=== PATIENT | male | born 1970 | race Caucasian/White ===

== ENCOUNTER 2018-09-25 08:37 | Outpatient (CLI) | payer BC ==
--- NOTE | 2018-09-25 10:36 | RAD ---
EXAM: PELVIS ONE VIEW: History: Pelvic pain without injury. FINDINGS: Mild degenerative changes of the hip joints. No acute fracture or dislocation. IMPRESSION: Unremarkable AP pelvis. No acute process. POS: [facility]
== END 2018-09-25 08:38 | disposition home or self-care (01) ==
LOC: BICRAD 08:37
PROVIDERS: ATTEND Family Medicine
DX: R10.2 Pelvic and perineal pain (principal)
CPT/HCPCS: 72170

== ENCOUNTER 2018-10-23 12:25 | Outpatient (CLI) | payer BC ==
--- NOTE | 2018-10-23 13:07 | RAD ---
2 views lumbar spine. HISTORY: Onset back pain. AP and lateral views lumbar spine. 5 nonrib-bearing lumbar vertebra seen. No evidence of fractures, subluxations or bony lesions. Small anterior osteophytes seen involving L3- L4 and L5 levels. No evidence of acute fracture seen. IMPRESSION: minimal changes of spondylosis in the lumbar spine.
== END 2018-10-23 12:26 | disposition home or self-care (01) ==
LOC: SCSRAD 12:25
PROVIDERS: ATTEND Family Medicine
DX: M54.9 Dorsalgia, unspecified (principal); M47.816 Spondylosis without myelopathy or radiculopathy, lumbar region
CPT/HCPCS: 72100

== ENCOUNTER 2019-01-17 08:00 | Outpatient (CLI) | payer BC ==
--- NOTE | 2019-01-17 10:09 | CT ---
CT ABDOMEN AND PELVIS WITH AND WITHOUT CONTRAST: INDICATIONS: Pelvic pain. Groin pain. FINDINGS: There is atelectasis at the lung bases. Noncontrast CT imaging reveals no radiopaque urolithiasis or calcified gallstones. Contrast opacified small bowel is normal in caliber. No acute colonic inflam mation. Solid abdominal organs are normal in appearance. No ascites. The urinary bladder is unrema rkable. No free pelvic fluid. No evidence of inguinal hernia. Bilateral metallic clips along each seminal vesicle tract indicate prior vasectomy. No adenopathy is seen. The aorta is normal in calib er where visualized. No acute osseous pathology. IMPRESSION: No acute abnormalities identified. POS: [facility]
== END 2019-01-17 08:01 | disposition home or self-care (01) ==
LOC: BICCT 08:00
PROVIDERS: ATTEND Family Medicine
DX: R10.2 Pelvic and perineal pain (principal)
CPT/HCPCS: 74178